=== PATIENT | male | born 1970 | race Caucasian/White ===

== ENCOUNTER 2017-03-08 12:50 | Inpatient (IN) | payer MEDICAID, OTHER ==
[~2017-03-08] VITALS: Ht 167.6 cm; Wt 96.8 kg
[~2017-03-08 12:50] MED LIST: ABAC300T8 PO; DOLU50TA PO; FLUO-191 PO; LAMI300T PO; OLAN10TA3 PO
[2017-03-08 13:25] LABS: BASOPHILS % (AUTO) 0.2 % (0.0-2.0); HEMOGLOBIN 14.8 g/dL (13.5-17.5); LYMPHOCYTES % (AUTO) 37.3 % (22.0-44.0); MEAN CORPUSCULAR HEMOGLOBIN 30.9 pg (26.0-34.0); MEAN CORPUSCULAR HGB CONC 34.3 G/dL (31.0-37.0); MEAN CORPUSCULAR VOLUME 90 fL (80-100); MONOCYTES # (AUTO) 0.7 K/uL (0.1-1.0); MONOCYTES % (AUTO) 12.8 % (2.0-9.0); NEUTROPHILS # (AUTO) 2.5 K/uL (1.8-7.7); NEUTROPHILS % (AUTO) 46.7 % (40.0-70.0); PLATELET COUNT (AUTO) 268 K/uL (150-450); RED BLOOD CELL COUNT(AUTO) 4.79 MIL/uL (4.50-5.90); RED CELL DISTRIBUTION WIDTH 13.7 % (11.5-14.5); WHITE BLOOD COUNT (AUTO) 5.3 K/uL (4.5-11.0)
[2017-03-08 13:33] LABS: ANION GAP 8 mmol/L (8-16); CALCIUM, TOTAL 8.6 mg/dL (8.8-10.5); CARBON DIOXIDE 26 mmol/L (22-29); CHLORIDE 102 mmol/L (98-107); CREATININE 0.81 mg/dL (0.60-1.30); GLOMERULAR FILTR. RATE CALC > 60 mL/min (>60); POTASSIUM 3.9 mmol/L (3.5-5.1); SODIUM SERUM 136 mmol/L (136-145); UREA NITROGEN, BLOOD 20 mg/dL (7-18)
[2017-03-08 13:39] LABS: ALANINE AMINOTRANSFERASE 85 U/L (12-78); ALBUMIN 3.8 g/dL (3.4-5.0); ASPARTATE AMINOTRANSFERASE 33 U/L (15-37); BILIRUBIN,TOTAL 0.5 mg/dL (0.1-1.0); TOTAL PROTEIN, SERUM 7.9 g/dL (6.4-8.2)
[2017-03-08] MEDS ORDERED: HALOPERIDOL 5 MG TABLET PO PRN (14:00)
[2017-03-08] MEDS ORDERED: ZOLPIDEM TARTRATE 10 MG TABLET PO PRN (14:00)
[2017-03-08 16:05] VITALS: BP 125/81
[2017-03-09 06:22] VITALS: BP 112/69
[2017-03-09] MEDS: ABACAVIR SULFATE 300 MG TABLET PO SCH (08:55)
[2017-03-09] MEDS: NICOTINE 14 MG/24 HOUR PATCH TD SCH (08:59)
[2017-03-09 09:34] VITALS: BP 121/74
[2017-03-09] MEDS: LORazepam 2 MG TABLET PO PRN (16:06)
[2017-03-09 16:30] VITALS: BP 122/77
[2017-03-09] MEDS: OLANZapine 7.5 MG TABLET PO SCH (20:08)
[2017-03-10 09:31] VITALS: BP 135/93
[2017-03-10] MEDS: ABACAVIR SULFATE 300 MG TABLET PO SCH (09:40)
[2017-03-10] MEDS: NICOTINE 14 MG/24 HOUR PATCH TD SCH (09:43)
[2017-03-10] MEDS: DOLUTEGRAVIR SODIUM 50 MG TABLET PO SCH (11:48)
[2017-03-10] MEDS: LORazepam 2 MG TABLET PO PRN (16:01)
[2017-03-10 18:00] VITALS: BP 122/89
[2017-03-10] MEDS: OLANZapine 7.5 MG TABLET PO SCH (20:57)
[2017-03-11 05:30] VITALS: BP 123/75
[2017-03-11 07:34] LABS: CHOL/HDL RATIO 9.3 (4.2-7.3); THYROID STIMULATING HORMONE 1.76 uIU/mL (0.36-3.74)
[2017-03-11 08:12] VITALS: BP 95/59
[2017-03-11] MEDS: DOLUTEGRAVIR SODIUM 50 MG TABLET PO SCH (08:17)
[2017-03-11] MEDS: NICOTINE 14 MG/24 HOUR PATCH TD SCH (08:17)
[2017-03-11] MEDS: ABACAVIR SULFATE 300 MG TABLET PO SCH (08:17)
[2017-03-11] MEDS: LORazepam 2 MG TABLET PO PRN (08:19)
[2017-03-11 16:32] VITALS: BP 100/65
[2017-03-11] MEDS: OLANZapine 7.5 MG TABLET PO SCH (20:36)
[2017-03-12] MEDS: DOLUTEGRAVIR SODIUM 50 MG TABLET PO SCH (08:19)
[2017-03-12] MEDS: ABACAVIR SULFATE 300 MG TABLET PO SCH (08:19)
[2017-03-12] MEDS: NICOTINE 14 MG/24 HOUR PATCH TD SCH (08:20)
[2017-03-12 09:04] VITALS: BP 129/71
[2017-03-12] MEDS: LORazepam 2 MG TABLET PO PRN (10:57)
[2017-03-12] MEDS ORDERED: OLAN7.5T2 PO (11:53)
[2017-03-12] MEDS ORDERED: DOLU50TA PO (11:57)
[2017-03-12] MEDS ORDERED: ABAC300T8 PO (11:57)
[2017-03-12] MEDS ORDERED: EPIV100 PO (11:58)
== END 2017-03-12 12:30 | disposition home or self-care (01) | DRG 750 ==
LOC: EMS 12:53 → EEVIPCON 12:53 → 3EI 15:30 → EMS 15:57
PROVIDERS: ADMIT Psychiatry & Neurology Psychiatry; ATTEND Psychiatry & Neurology Psychiatry
DX: F20.0 Paranoid schizophrenia (principal); R45.851 Suicidal ideations; E55.9 Vitamin D deficiency, unspecified; D64.9 Anemia, unspecified; R79.89 Other specified abnormal findings of blood chemistry; M43.20 Fusion of spine, site unspecified; F15.10 Other stimulant abuse, uncomplicated; Z72.0 Tobacco use
CPT/HCPCS: 84436; 84439; 84443; 99285; G0480